=== PATIENT | female | born 1980 | race Caucasian/White ===

== ENCOUNTER → 2022-06-19 17:21 | Outpatient (CLI) | payer BC, SELFPAY ==
[2022-06-19 17:41] LABS: Add Manual Diff / Slide Review NO; Basophils Absolute Auto 0 /uL (0-100); Basophils Percent Auto 0.8 % (0-2); Eosinophils Absolute Auto 100 /uL (0-450); Hematocrit 36.4 % (36-46); Hemoglobin 12.5 g/dL (12.0-16.0); Lymphocytes Absolute Auto 2300 /uL (1100-4500); Lymphocytes Percent Auto 39.8 % (25-40); Mean Corpuscular HGB Conc 34.4 % (30-36); Mean Corpuscular Hemoglobin 30.3 PG (26-34); Mean Corpuscular Volume 87.9 fL (80-100); Monocytes Absolute Auto 400 /uL (0-900); Monocytes Percent Auto 6.9 % (3-14); Neutrophils Absolute Auto 3000 /uL (1500-7000); Neutrophils Percent Auto 51.5 % (50-75); Platelet Count 219 X10^3/uL (150-400); Red Blood Cell Count 4.14 X10^6/uL (4.0-5.2); Red Cell Distribution Width 12.8 % (11.6-14.8); White Blood Cell Count 5.8 X10^3/uL (4.5-11.0)
[2022-06-19 18:02] LABS: BUN Creatinine Ratio 13.3 (6-22); Blood Urea Nitrogen 14 mg/dL (7-17); Calcium 8.5 mg/dL (8.4-10.2); Carbon Dioxide 29 mmol/L (22-32); Chloride 103 mmol/L (98-107); Estimated Glomerular Filt Rate > 60 mL/min (>60); Glucose 105 mg/dL (70-100); HEMOLYSIS 16 (0-50); Potassium 4.1 mmol/L (3.4-5.1); Sodium 139 mmol/L (137-145)
== END ==
PROVIDERS: Referring Provider Student in an Organized Health Care Education/Training Program; Visit Provider Student in an Organized Health Care Education/Training Program
DX: R29.898 Other symptoms and signs involving the musculoskeletal system (principal)
CPT/HCPCS: 36415; 80048; 85025

== ENCOUNTER → 2022-10-16 11:27 | Outpatient (CLI) | payer BC, SELFPAY | PROVIDERS: Family Provider Registered Nurse Diabetes Educator; PCP Registered Nurse Diabetes Educator; Referring Provider Registered Nurse Diabetes Educator; Visit Provider Registered Nurse Diabetes Educator | DX: R29.898 Other symptoms and signs involving the musculoskeletal system (principal) | CPT/HCPCS: 95886; 95910 ==

== ENCOUNTER → 2023-03-08 16:19 | Outpatient (CLI) | payer BC, SELFPAY ==
--- NOTE | 2023-03-08 16:20 | DI.RAD.S_ITS ---
PROCEDURE: XR SHOULDER LT MIN 2V INDICATIONS: Left shoulder pain TECHNIQUE: 3 views of the shoulder were acquired. COMPARISON: None. FINDINGS: Bones: No fractures or dislocations. No suspicious bony lesions. Visualized ribs appear intact. Soft tissues: No suspicious soft tissue calcifications. IMPRESSION: No acute abnormality or significant degenerative change. Dictated by: Liborio Cody M.D. on 03/08/2023 at 18:27 Approved by: Liborio Cody M.D. on 03/08/2023 at 18:28
== END ==
PROVIDERS: Family Provider Registered Nurse Diabetes Educator; PCP Registered Nurse Diabetes Educator; Referring Provider Nurse Practitioner Family; Visit Provider Nurse Practitioner Family
DX: M25.512 Pain in left shoulder (principal)
CPT/HCPCS: 73030

== ENCOUNTER → 2023-03-17 09:07 | Outpatient (CLI) | payer BC, SELFPAY | PROVIDERS: Family Provider Registered Nurse Diabetes Educator; PCP Registered Nurse Diabetes Educator; Visit Provider Student in an Organized Health Care Education/Training Program | DX: J02.9 Acute pharyngitis, unspecified (principal) | CPT/HCPCS: 87070 ==

== ENCOUNTER → 2023-08-03 11:37 | Outpatient (CLI) | payer BC, SELFPAY ==
[2023-08-04 20:56] LABS: Deamidated Gliadin Ab IgA 3 units (0-19); Deamidated Gliadin Ab IgG 3 units (0-19); Immunoglobulin A,Qn 30 mg/dL (87-352); t-Transglutaminase IgA <2 U/mL (0-3)
== END ==
PROVIDERS: Family Provider Registered Nurse Diabetes Educator; PCP Registered Nurse Diabetes Educator; Referring Provider Registered Nurse Diabetes Educator; Visit Provider Registered Nurse Diabetes Educator
DX: Z13.818 Encounter for screening for other digestive system disorders (principal); Z83.79 Family history of other diseases of the digestive system
CPT/HCPCS: 36415; 82784; 83516

== ENCOUNTER → 2023-08-17 12:24 | Outpatient (CLI) | payer BC, SELFPAY ==
[2023-08-18 05:25] LABS: Immunoglobulin A 32 mg/dL (87-352); Immunoglobulin G, Quantitative 1389 mg/dL (586-1602); Immunoglobulin M, Quantitative 92 mg/dL (26-217)
== END ==
PROVIDERS: Family Provider Registered Nurse Diabetes Educator; PCP Registered Nurse Diabetes Educator; Referring Provider Registered Nurse Diabetes Educator; Visit Provider Registered Nurse Diabetes Educator
DX: D80.2 Selective deficiency of immunoglobulin A [IgA] (principal)
CPT/HCPCS: 36415; 82784

== ENCOUNTER → 2023-09-22 07:43 | Outpatient (CLI) | payer BC, SELFPAY | PROVIDERS: Family Provider Registered Nurse Diabetes Educator; PCP Registered Nurse Diabetes Educator; Visit Provider Physician Assistant | DX: R30.0 Dysuria (principal) | CPT/HCPCS: 87086 ==

== ENCOUNTER → 2023-11-03 11:47 | Outpatient (CLI) | payer BC, SELFPAY ==
--- NOTE | 2023-11-03 | DI.MG.S_ITS ---
BILATERAL DIGITAL SCREENING MAMMOGRAM 3D/2D WITH CAD: 11/03/2023 CLINICAL: Baseline exam. Routine screening. Family history of breast cancer. No prior exams were available for comparison. Both breasts are heterogeneously dense, which may obscure small masses (category c / 51-75% glandular tissue). Current study was also evaluated with a Computer Aided Detection (CAD) system. No significant masses, calcifications, or other findings are seen in either breast. IMPRESSION: NEGATIVE There is no mammographic evidence of malignancy. A 1 year screening mammogram is recommended. Based on the Tyrer Cuzick model (a risk assessment model) the patient's lifetime risk is 14.9% and her 10 year risk is 2.8%. According to the ACR, ACS, and NCCN guidelines, an annual breast MRI exam along with mammogram is recommended if the patient's lifetime risk is 20% or greater. This exam was interpreted at Station ID: [id number]. NOTE: For mammograms, a report in lay terms will be sent to the patient. Approximately 15% of breast malignancies will not be visualized mammographically. In the management of a palpable breast mass, a negative mammogram must not discourage biopsy of a clinically suspicious lesion. Electronically Signed By: Shay trores/wang:11/03/2023 12:20:26 letter sent: Normal Exam ACR BI-RADS Category 1: Negative 3341F
== END ==
LOC: MAMMO 11:48
PROVIDERS: Family Provider Registered Nurse Diabetes Educator; PCP Registered Nurse Diabetes Educator; Referring Provider Registered Nurse Diabetes Educator; Visit Provider Registered Nurse Diabetes Educator
DX: Z12.31 Encounter for screening mammogram for malignant neoplasm of breast (principal); Z80.3 Family history of malignant neoplasm of breast; R92.333 Mammographic heterogeneous density, bilateral breasts
CPT/HCPCS: 77063; 77067

== ENCOUNTER 2024-02-09 12:14 | Day surgery (SDC) | payer BC, SELFPAY ==
--- NOTE | 2024-02-09 | PATH_ITS ---
[facility] Accession Number: [id number] No. of containers..01 Tissue . 01 Material submitted: . sigmoid colon - SIGMOID POLYP . 01 Diagnosis: SIGMOID POLYP: Tubular adenoma. RUST 02/12/2024 1236 Local . 01 Electronically signed: . Gareth Schrader MD, Pathologist NPI- [id number] . 01 Gross description: . SIGMOID POLYP: Received in formalin is 1 fragment of quiñonez soft tissue measuring 1.5 x 1.2 x 2.2 cm. Specimen is sectioned and submitted in its entirety in 2 cassettes. /RO 02/12/2024 1236 Local . 01 Pathologist provided ICD-10: D12.5 . 01 CPT . 477804 Specimen Comment: A courtesy copy of this report has been sent to [phone] Performed at: [address] [id number] MD Gareth Schrader MD Phone: [phone]
[2024-02-09 12:43] VITALS: BP 103/68; PULSE 69; RESP 16; TEMP 36.9; O2SAT 99
[2024-02-09] MEDS: LACTATED RINGERS 1,000 ML 42 ML IV (12:54)
--- NOTE | 2024-02-09 13:44 | PM.HP.1 ---
History of Present Illness History of Present Illness Date Patient Seen: 02/09/24 Time Patient Seen: 13:44 Chief complaint: Screening Colonoscopy Narrative: 43-year-old woman here for 1st time screening colonoscopy. No family history of colon cancer. No abdominal concerns today. FORMERLY [facility], 1928–1983 Medical History IgA deficiency, isolated Chronic neck pain Dandruff (~2021) Irregular menstrual cycle (~2021) Blood in stool (~2021) Carpal tunnel syndrome, left (~2020) Major depressive disorder, single episode, moderate (~2021) Anxiety (~2020) Surgical History Anesthesia [place] teeth removed (~1999) History of hand surgery (~2015) Family History Father History of heart disease Mother Depression Anxiety Mental health problem Chronic migraine Osteoporosis Syncope Sister Anxiety Depression Mental health problem Thyroid cancer Undifferentiated connective tissue disease Celiac disease Sister Mental health problem Depression Grandfather Hyperlipidemia Hypertension Grandfather History of heart disease Grandmother Breast cancer Grandmother Macular degeneration Arthritis Social History Smoking Status: Never smoker alcohol intake: current Meds Home Medications and Allergies Home Medications Medication Instructions Recorded Confirmed Type cholecalciferol (vitamin D3) 25 25 mcg PO DAILY 11/12/22 02/09/24 History mcg (1,000 unit) capsule multivitamin (Daily Multi-Vitamin 1 tab PO DAILY 11/12/22 02/09/24 History tablet) bupropion HCl 150 mg 24 hr tablet, 150 mg PO QAM #90 tabs 12/14/23 02/09/24 Rx extended release (Wellbutrin XL) sodium sul 1.479 gram-potas ch See Rx Instructions PO PER PKG DIR 01/14/24 02/09/24 Rx 0.188 gram-magnes sul 0.225 gram #24 tabs tablet (Sutab) Allergies Allergy/AdvReac Type Severity Reaction Status Date / Time escitalopram AdvReac Mild Depression Verified 02/09/24 12:51 Exam Vital Signs (past 8 hours): - 02/09/24 12:43 Temperature 98.4 F Pulse Rate 69 Respiratory Rate 16 Blood Pressure 103/68 Pulse Oximetry 99 Oxygen Delivery Method Room Air Oxygen Delivery Method Room Air Narrative Exam Narrative: General adult woman alert oriented no acute distress Chest nonlabored respiration Extremities warm well perfused Assessment & Plan Assessment & Plan narrative: The patient requires colorectal screening and colonoscopy is recommended. Technical details were discussed. Risks, benefits, alternatives explained. Risks including but not limited to myocardial infarction, aspiration, bleeding, pain, missed lesion, incomplete examination, need for further radiographic studies, intestinal injury, and need for major abdominal surgery were discussed. All questions were answered to their satisfaction, and they are in agreement with this plan.
[2024-02-09 14:16] VITALS: BP 100/66; PULSE 70; RESP 12; TEMP 36.1; O2SAT 98
[2024-02-09 14:21] VITALS: BP 93/63; PULSE 82; RESP 14; O2SAT 97
--- NOTE | 2024-02-09 14:21 | P.OP.COLON_ITS ---
Operative Date/Time/Diagnoses Date of procedure: 02/09/24 Time of procedure: 14:21 Pre-op diagnosis: Colorectal screening Post-op diagnosis: other (Colonic polyp x1) Procedure & Clinicians Study performed: Colonoscopy and polypectomy Indications: Colorectal screening Surgeon: Kevin Temple Procedure Notes Procedure in detail: The history and physical was performed/updated and the patient is ASA class is 2. The procedure was discussed in detail with the patient. Potential risks complications including infection, bleeding, missed diagnosis, perforation, need for surgery, and were explained. Their questions were answered and informed consent was obtained. Patient was brought to the procedure room and placed standard monitoring equipment. The patient's vital signs were monitored continuously throughout the entire procedure. Prior to starting time-out was performed. The patient was placed in the left lateral recumbent position. Procedural sedation was administered by anesthesia. Examination began with a thorough inspection of the perianal area there was no evidence of fissures, fistulae, external hemorrhoids or cutaneous malignancy. The colonoscopy scope was then placed into the anal canal and was advanced to the cecum, which was identified by the ileocecal valve, the appendiceal orifice and the confluence of the taenia. The scope was then slowly withdrawn examining colon thoroughly in all directions, irrigating it of any residual stool. The scope was retroflexed within the rectum The patient tolerated the procedure well. They will be discharged once criteria are met. The prep was of good/excellent quality. The withdrawl time was 7 minutes. FINDINGS * 2-3 cm pedunculated polyp within the sigmoid colon 30 cm from the anal verge. Colon tattooed adjacent to the site of polyp. Polyp with associated stalk removed with hot snare Specimen(s): other (Sigmoid polyp) Impression: Colonic polyp x1 Post-procedure Recommendations: Will call with biopsy results Disposition: same day surgery
[2024-02-09 14:26] VITALS: BP 103/68; PULSE 63; RESP 15; O2SAT 98
[2024-02-09 14:31] VITALS: BP 94/66; PULSE 69; RESP 15; TEMP 36.2; O2SAT 98
== END 2024-02-09 14:56 | disposition home or self-care (01) ==
PROVIDERS: Family Provider Registered Nurse Diabetes Educator; PCP Registered Nurse Diabetes Educator; Referring Provider Surgery; Visit Provider Surgery
PROC: 0DJD8ZZ Inspection of Lower Intestinal Tract, Via Natural or Artificial Opening Endoscopic (ICD-10-PCS; CPT 45378; principal; 2024-02-09 13:15)
DX: Z12.11 Encounter for screening for malignant neoplasm of colon (principal); D12.5 Benign neoplasm of sigmoid colon
CPT/HCPCS: 45381; 45385; J2704

== ENCOUNTER → 2024-07-05 12:52 | Outpatient (CLI) | payer BC, SELFPAY ==
--- NOTE | 2024-07-05 12:52 | DI.RAD.S_ITS ---
PROCEDURE: XR DEXA AXIAL SKELETON INDICATIONS: screen osteoporosis COMPARISON: None. FINDINGS: Lumbar Spine: Bone mineral density 0.947 g/cm2, T score -0.9. Left Hip: Bone mineral density 0.903 g/cm2, T score -0.3. Left Femoral Neck: Bone mineral density 0.745 g/cm2, T score -0.9. Right Hip: Bone mineral density 0.859 g/cm2, T score -0.7. Right Femoral Neck: Bone mineral density 0.746 g/cm2, T score -0.9. Fracture Risk Calculation (when applicable): 10-year fracture risk of a major osteoporotic fracture 5.6 percent and of a hip fracture 0.1 percent. (T score greater or equal to -1.0 to: NORMAL) (T score from -1.1 to -2.4: OSTEOPENIA) (T score less than or equal to -2.5: OSTEOPOROSIS) IMPRESSION: Bone mineral density is within normal limits. Follow-up guidelines as follows: Osteoporosis: Consider a repeat DEXA and Vertebral Fracture Assessment (VFA) exam in 2 years or sooner if medically necessary, to reassess this patient's status. Osteopenia: Consider a repeat DEXA in 2-3 years to reassess this patient's status, or if there is a new clinical indication. Normal: Consider a repeat DEXA in 5 years or sooner, or if there is a new clinical indication. All treatment decisions require clinical judgment and consideration of individual patient factors, including patient preferences, comorbidities, previous drug use, risk factors not captured in the FRAX model (e.g., frailty, falls, vitamin D deficiency, increased bone turnover, interval significant decline in bone density ) and possible under- or over-estimation of fracture risk by FRAX. In addition, the NOF Guide recommends that FDA-approved medical therapies be considered in postmenopausal women and men age >= 50 years with a: * Hip or vertebral (clinical or morphometric) fracture * T-score of <=-2.5 at the spine or hip * Ten-year fracture probability by FRAX of >= 3% for hip fracture or >=20% for major osteoporotic fracture. People with diagnosed cases of osteoporosis or at high risk for fracture should have regular bone mineral density tests. For patients eligible for Medicare, routine testing is allowed once every 2 years. The testing frequency can be increased to one year for patients who have rapidly progressing disease, those who are receiving or discontinuing medical therapy to restore bone mass, or have additional risk factors. Dictated by: Manuel Clifford M.D. on 07/05/2024 at 14:53 Approved by: Manuel Clifford M.D. on 07/05/2024 at 14:55
== END ==
PROVIDERS: Family Provider Registered Nurse Diabetes Educator; PCP Family Medicine; Referring Provider Family Medicine; Visit Provider Family Medicine
DX: M81.0 Age-related osteoporosis without current pathological fracture (principal)
CPT/HCPCS: 77080

== ENCOUNTER → 2024-07-18 11:06 | Outpatient (CLI) | payer BC, SELFPAY ==
[2024-07-18 12:12] LABS: Alanine Aminotransferase 36 IU/L (<35); Albumin 4.4 g/dL (3.5-5.0); Albumin Globulin Ratio 1.4 (1.0-2.8); Alkaline Phosphatase 84 U/L (38-126); Aspartate Aminotransferase 49 IU/L (14-36); BUN Creatinine Ratio 12.4 (6-22); Bilirubin Total 0.5 mg/dL (0.2-1.3); Blood Urea Nitrogen 14 mg/dL (7-17); Calcium 9.4 mg/dL (8.4-10.2); Carbon Dioxide 31 mmol/L (22-32); Chloride 104 mmol/L (98-107); Estimated Glomerular Filt Rate > 60 mL/min (>60); Globulin 3.2 g/dL (1.7-4.1); Glucose 84 mg/dL (70-100); HEMOLYSIS < 15 (0-50); Potassium 4.5 mmol/L (3.4-5.1); Sodium 139 mmol/L (137-145); Total Protein 7.6 g/dL (6.3-8.2)
[2024-07-18 12:29] LABS: Vitamin D 25 Hydroxy (D3) 69.1 ng/mL (30.0-100.0)
[2024-07-20 12:36] LABS: N-telo/Creat. Ratio 40 (0-64); N-telopeptide 446 nmol BCE (Not Estab.)
[2024-07-25 11:36] LABS: C-Telopeptide, Serum 655 pg/mL (.)
== END ==
PROVIDERS: Family Provider Registered Nurse Diabetes Educator; PCP Family Medicine; Referring Provider Family Medicine; Visit Provider Family Medicine
DX: N95.1 Menopausal and female climacteric states (principal); Z82.62 Family history of osteoporosis; E55.9 Vitamin D deficiency, unspecified; F41.9 Anxiety disorder, unspecified; F32.1 Major depressive disorder, single episode, moderate
CPT/HCPCS: 36415; 80053; 82306; 82523; 82570